=== PATIENT | female | born 1945 | race Caucasian/White ===

== ENCOUNTER 2016-05-20 06:32 | Emergency (ER) | payer MEDICARE, OTHER ==
[2016-05-20 07:47] LABS: BASOPHIL 0.1 % (0-2); EOSINOPHIL 0.1 % (0-7); HCT 45.3 % (37.0-47.0); HGB 14.9 g/dl (12.5-16.0); LYMPHOCYTE 5.3 % (15-48); MCH 32.6 pg (25.0-31.0); MCHC 32.9 g/dL (32.0-36.0); MCV 99.1 fL (78.0-100.0); MONOCYTE 7.7 % (0-12); MPV 10.1 fL (6.0-9.5); NEUTROPHIL 86.8 % (41-80); PLT 284 K/uL (150-400); RBC 4.57 M/uL (4.20-5.40); RDW 14.3 % (11.5-14.0)
[2016-05-20 08:24] LABS: BILIRUBIN NEGATIVE (NEGATIVE); BLOOD 2+ Ery/uL (NEGATIVE); CLARITY CLEAR (CLEAR); COLOR YELLOW (YELLOW); GLUCOSE (U) NORMAL (NORMAL); KETONE (U) TRACE mg/dL (NEGATIVE); LEUKOCYTES 2+ Leu/uL (NEGATIVE); NITRITE POSITIVE (NEGATIVE); PROTEIN TRACE (LOW) mg/dL (NEGATIVE); SPECIFIC GRAVITY 1.025 (1.001-1.030); UROBILINOGEN 0.2 mg/dL (0.2-1.0); pH 5.5 (5.0-9.0)
[2016-05-20 08:39] LABS: BACTERIA 2+
[2016-05-20 08:40] LABS: URINARY WBC 20-50
[2016-05-20 09:13] LABS: CREATININE 1.5 mg/dL (0.5-1.0); POTASSIUM 4.9 mmol/L (3.5-5.1)
[2016-05-20 10:18] LABS: ALBUMIN 3.9 g/dL (3.4-4.8); BILIRUBIN - DIRECT 0.2 mg/dL (0.0-0.2); BILIRUBIN - TOTAL 0.5 mg/dL (0.1-1.0); GLOBULIN (CALCULATION) 2.4 g/dL (2.2-4.2); TOTAL PROTEIN 6.3 g/dL (6.4-8.3)
== END 2016-05-20 12:20 | disposition other institution (70) ==
LOC: FER 06:32
PROVIDERS: Emergency Medicine
DX: N39.0 Urinary tract infection, site not specified (principal); L03.116 Cellulitis of left lower limb; R19.00 Intra-abdominal and pelvic swelling, mass and lump, unspecified site; E11.9 Type 2 diabetes mellitus without complications; I10 Essential (primary) hypertension; K92.1 Melena; R19.7 Diarrhea, unspecified; Z79.4 Long term (current) use of insulin; Z79.899 Other long term (current) drug therapy; Z89.521 Acquired absence of right knee
CPT/HCPCS: 36415; 73590; 73630; 80048; 80076; 81001; 85025; 86403; 86850; 86900; 86901; 87040; 87070; 87076; 87077; 87088; 87186; 87205; 93005; J2405; J2543